=== PATIENT | female | born 1935 | race Caucasian/White ===

== ENCOUNTER 2017-06-28 06:01 | Day surgery (SDC) | payer OTHER ==
[~2017-06-28] VITALS: Ht 175.3 cm; Wt 59.4 kg
[2017-06-28 06:56] VITALS: BP 162/82
[2017-06-28 07:02] LABS: BASOPHIL % 0.5 % (0-2); PLATELET COUNT 156 x10^3mcL (130-400)
[2017-06-28 07:07] LABS: RED CELL DISTRIBUTION WIDTH 21.8 % (11.5-14.5)
[2017-06-28 07:08] LABS: CALCIUM 8.8 mg/dL (8.5-10.1); CARBON DIOXIDE 28.3 mmol/L (21-32); CHLORIDE SERUM 102 mmol/L (98-107); CREATININE SERUM 0.7 mg/dL (0.6-1.0); GLUCOSE SERUM 99 mg/dL (74-106); POTASSIUM SERUM 4.2 mmol/L (3.5-5.1); SODIUM SERUM 137 mmol/L (136-145); rbc morphology (normal/abnorm) ABNORMAL (NORMAL)
[2017-06-28 12:13] VITALS: BP 149/83
== END 2017-06-28 12:00 | disposition home or self-care (01) ==
LOC: GI 06:01 → OR 07:30 → GI 07:30
PROVIDERS: Internal Medicine
PROC: 0F7D8ZZ Dilation of Pancreatic Duct, Via Natural or Artificial Opening Endoscopic (ICD-10-PCS; 2017-06-28)
PROC: 0F798ZZ Dilation of Common Bile Duct, Via Natural or Artificial Opening Endoscopic (ICD-10-PCS; principal; 2017-06-28 07:30)
DX: K86.89 Other specified diseases of pancreas (principal); I10 Essential (primary) hypertension; E78.5 Hyperlipidemia, unspecified; M06.9 Rheumatoid arthritis, unspecified; Z68.1 Body mass index [BMI] 19.9 or less, adult
CPT/HCPCS: 43260; 76001; C1769; J1170; J1610; J1885; J2250; J2405; J2704; J3010; J7120; Q0092; Q9967